=== PATIENT | male | born 1950 | race Caucasian/White ===

== ENCOUNTER → 2021-09-05 | Outpatient (CLI) | payer MEDICARE ==
--- NOTE | 2021-09-05 16:33 | XR ---
EXAMINATION TYPE: XR lumbosacral spine 5 views DATE OF EXAM: 09/05/2021 Comparison: None Clinical History: 71-year-old male Right Hip Pain M25.551 Findings: There is a eggshell calcification measuring 2.0 cm and the left subphrenic region. Slight left convex curvature centered on the upper lumbar spine. There is a grade 3 L5-S1 anterolisthesis with a promin ent degenerative hyperostosis. Trace degenerative grade 1 retrolisthesis L2-L3 and L3-L4. Mild to mod erate multilevel degenerative disc disease. Vertebral body heights are preserved. Impression: 1. A severely degenerated grade 3 anterolisthesis at L5-S1. There may be underlying L5 pars defects a t this level. 2. Hypertrophic facet arthropathy throughout. Additional degenerative trace grade 1 retrolisthesis L2 -L3 and L3-L4. 3. Mild to moderate degenerative disc disease mid to lower lumbar spine. 4. A 2.0 cm eggshell calcification left subphrenic region. This could represent a calcified pseudocys t or splenic artery aneurysm. Consider initial left upper quadrant ultrasound to attempt clarifying t he etiology.
--- NOTE | 2021-09-05 16:35 | XR ---
EXAMINATION TYPE: AP view pelvis and 2 views right hip DATE OF EXAM: 09/05/2021 COMPARISON: NONE HISTORY: 71-year-old male M25.551, right hip pain. FINDINGS: Lumbar spine reported separately. There is end-stage degenerative change of the right hip w ith complete loss of superolateral weightbearing cartilage and joint space and [id number] abutment. Mild bony remodeling of the weightbearing aspect of the femoral head. Subchondral sclerosis and cyst ic change. Marginal spurring is present. Pelvis limits. No acute fracture, subluxation, dislocation s een. Mild degenerative change left hip. IMPRESSION: Endstage [id number] right hip OA. Mild OA on the left. Lumbar spine reported separately.
== END | disposition home or self-care (01) ==
LOC: RADXRMAIN 14:01
PROVIDERS: ATTEND Family Medicine
DX: M51.36 Other intervertebral disc degeneration, lumbar region (principal); M47.896 Other spondylosis, lumbar region; M25.551 Pain in right hip
CPT/HCPCS: 72110; 73502

== ENCOUNTER → 2021-09-18 | Outpatient (CLI) | payer MEDICARE ==
[2021-09-18 12:47] LABS: Appearance,Urine Clear (Clear); Bilirubin,Urine Negative (Negative); Blood,Urine Negative (Negative); Color,Urine Yellow; Glucose,Urine (UA) Negative (Negative); Ketones,Urine Negative (Negative); Leukocyte Esterase,Urine Negative (Negative); Nitrite,Urine Negative (Negative); Protein,Urine Trace (Negative); Specific Gravity,Urine 1.029 (1.001-1.035); Urobilinogen,Urine <2.0 mg/dL (<2.0)
--- NOTE | 2021-09-18 12:56 | US ---
EXAMINATION TYPE: US groin RT DATE OF EXAM: 09/18/2021 COMPARISON: NONE CLINICAL HISTORY: R10.2 Pelvic and perineal pain,R80.89 Diminished pulses. Right groin pain Right groin at patient's area of concern: appears wnl IMPRESSION: 1. No discrete abnormality right groin. CT could be performed if additional evaluation would be of be nefit
[2021-09-18 17:46] LABS: Basophils # (A) 0.05 X 10*3/uL (0.00-0.10); Basophils % (A) 0.7 %; Eosinophils # (A) 0.12 X 10*3/uL (0.04-0.35); Eosinophils % (A) 1.7 %; HCT 43.3 % (39.6-50.0); Immature Grans, Automated 0.4 %; Lymphocytes # (A) 1.54 X 10*3/uL (0.90-5.00); Lymphocytes % (A) 21.3 %; MCH 30.6 pg (27.0-32.0); MCHC 32.3 g/dL (32.0-37.0); MCV 94.7 fL (80.0-97.0); Mean Platelet Volume 9.6 fL (9.5-12.2); Monocytes % (A) 9.7 %; NRBC Per 100 WBC 0 /100 WBCS (0.0-0.0); Neutrophils # (A) 4.79 X 10*3/uL (1.80-7.70); Neutrophils % (A) 66.2 %; Platelet Count 309 X 10*3/uL (140-440); RBC 4.57 X 10*6/uL (4.40-5.60); RDW 13.3 % (11.5-14.5); WBC 7.23 X 10*3/uL (4.50-10.00)
[2021-09-18 18:06] LABS: % Iron Saturation 29.33 (15.00-50.00); ALT 19 U/L (10-49); AST 24 U/L (14-35); African American GFR (CKD) 77.3 (60.0-200.0); Albumin 4.2 g/dL (3.8-4.9); Alkaline Phosphatase 96 U/L (41-126); BUN/Creat Ratio 20.27 Ratio (12.00-20.00); Blood Urea Nitrogen 22.3 mg/dL (9.0-27.0); Calcium 9.3 mg/dL (8.7-10.3); Carbon Dioxide 24.6 mmol/L (20.0-27.5); Chloride 102 mmol/L (96-109); Chol/HDL Ratio 2.72 Ratio; Glucose 102 mg/dL (70-110); Iron 85 ug/dL (65-175); LDL Cholesterol,Calculated 113.9 mg/dL (0.0-131.0); Non-African American GFR(CKD) 66.7 (60.0-200.0); Potassium 4.3 mmol/L (3.5-5.5); Sodium 139 mmol/L (135-145); Total Iron Binding Capacity 290 ug/dL (228-460); Total Protein 7.2 g/dL (6.2-8.2)
== END | disposition home or self-care (01) ==
LOC: RADUSWWP 11:40
PROVIDERS: ATTEND Family Medicine
DX: Z12.5 Encounter for screening for malignant neoplasm of prostate (principal); R10.2 Pelvic and perineal pain; D50.9 Iron deficiency anemia, unspecified; E87.8 Other disorders of electrolyte and fluid balance, not elsewhere classified; R94.5 Abnormal results of liver function studies; E03.9 Hypothyroidism, unspecified; R73.01 Impaired fasting glucose; E78.5 Hyperlipidemia, unspecified; N39.0 Urinary tract infection, site not specified; E55.9 Vitamin D deficiency, unspecified
CPT/HCPCS: 80053; 80061; 81003; 82728; 83036; 83540; 83550; 84153; 84439; 84443; 85025; 93922

== ENCOUNTER → 2022-08-19 | Outpatient (CLI) | payer MEDICARE ==
--- NOTE | 2022-08-19 10:08 | XR ---
EXAMINATION TYPE: XR lumbar spine 2 or 3V DATE OF EXAM: 08/19/2022 9:26 AM INDICATION: Patient age:Male; 72 years old; Reason for study: M54.9 BACK PAIN; PHH. COMPARISON: 09/05/2021 TECHNIQUE: Frontal, lateral and coned in L5-S1 lateral views of the spine. FINDINGS: No evidence of any acute osseous pathology. No evidence of loss of vertebral body height i s seen. There is grade 2-3 anterolisthesis of L5 on S1 alignment of the lumbar vertebral bodies. Ther e is bilateral spondylolysis at L5. Additional grade 1 anterolisthesis of L4 and L5. Mild scattered d isc space narrowing worse at L5-S1. Multilevel marginal osteophyte formation throughout the visualize d spine. There is facet joint arthropathy throughout the spine in the lower spine. Scattered at least mild neural foraminal stenosis worse at L5-S1. Peripherally calcified lesion in left upper quadrant. Atherosclerosis of the arterial vasculature. IMPRESSION: 1. No acute fracture. 2. Grade 2-3 anterolisthesis of L5 on S1 with spondylolysis. 3. Grade 1 anterolisthesis of L4 on L5.
[2022-08-19 16:37] LABS: Basophils # (A) 0.05 X 10*3/uL (0.00-0.10); Basophils % (A) 0.9 %; Eosinophils # (A) 0.11 X 10*3/uL (0.04-0.35); Eosinophils % (A) 1.9 %; HCT 44.6 % (39.6-50.0); HGB 14.8 d/dL (12.0-15.0); Lymphocytes # (A) 1.25 X 10*3/uL (0.90-5.00); Lymphocytes % (A) 21.5 %; MCH 31.3 pg (27.0-32.0); MCHC 33.2 d/dL (32.0-37.0); MCV 94.3 FL (80.0-97.0); Mean Platelet Volume 9.5 FL (9.5-12.2); Monocytes # (A) 0.44 X 10*3/uL (0.20-1.00); Monocytes % (A) 7.6 %; NRBC Per 100 WBC 0 X 10*3/uL (0.00-0.01); Neutrophils # (A) 3.95 X 10*3/uL (1.80-7.70); Neutrophils % (A) 67.8 %; Platelet Count 350 X 10*3/uL (140-440); RBC 4.73 X 10*6/uL (4.40-5.60); RDW 13.4 % (11.5-14.5); WBC 5.82 X 10*3/uL (4.50-10.00)
[2022-08-19 17:15] LABS: ALT 14 U/L (10-49); AST 18 U/L (14-35); Albumin 4.3 d/dL (3.8-4.9); Albumin/Globulin Ratio 1.59 Ratio (1.60-3.17); Alkaline Phosphatase 96 U/L (41-126); BUN/Creat Ratio 18.91 Ratio (12.00-20.00); Blood Urea Nitrogen 20.8 mg/dL (9.0-27.0); Calcium 9.5 mg/dL (8.7-10.3); Carbon Dioxide 27.1 mmol/L (21.6-31.8); Chloride 104 mmol/L (96-109); Chol/HDL Ratio 2.81 Ratio; Globulin 2.7 d/dL (1.6-3.3); Glucose 95 mg/dL (70-110); LDL Cholesterol,Calculated 127.4 mg/dL (0.0-131.0); Potassium 4.9 mmol/L (3.5-5.5); Sodium 142 mmol/L (135-145); T4, Free (Free Thyroxine) 1.33 ng/dL (0.80-1.80); Total Bilirubin 0.4 mg/dL (0.3-1.2)
== END | disposition home or self-care (01) ==
LOC: LABWHC1 08:02
PROVIDERS: ATTEND Nurse Practitioner
DX: Z13.220 Encounter for screening for lipoid disorders (principal); Z13.1 Encounter for screening for diabetes mellitus; M43.16 Spondylolisthesis, lumbar region; R53.83 Other fatigue; Z79.899 Other long term (current) drug therapy
CPT/HCPCS: 36415; 72100; 80053; 80061; 82306; 83036; 84402; 84403; 84439; 84443; 85025

== ENCOUNTER → 2023-12-02 | Outpatient (CLI) | payer MEDICARE ==
--- NOTE | 2023-12-03 01:47 | EEG ---
ELECTROENCEPHALOGRAM REPORT CLINICAL HISTORY: This is a 73-year-old gentleman with reported off balance when he closes his eyes. The video EEG is obtained to evaluate for seizure and epileptiform discharges. 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 EEG TYPE: A prolonged EEG with video using the 10/20 electrode placement system. DESCRIPTION: The start of recording is 13:25 and end of recording is 15:54 on 12/02/2023. DESCRIPTION: Wakefulness and drowsiness are obtained. During awake state, the posterior- dominant rhythm consists of [id number] voltage of 9 hertz activity that is well modulated, and well sustained. There is no physiological stage 2 sleep architecture. There is no focal slowing. Interictal and ictal is none. ACTIVATION PROCEDURE: Photic stimulation did not evoke a posterior driving response. There is no abnormality during the photic stimulation. Hyperventilation is not performed. CLINICAL INTERPRETATION: This is a normal 2.5-hour EEG with video during awake and drowsy state. There is no focal slowing, epileptiform discharge, or seizure on the EEG. A normal EEG does not rule out underlying epilepsy. Clinical correlation is recommended. MMJUNL / IJN: [id number] / MTDConnie
== END ==
LOC: NEUROMAIN 12:41
PROVIDERS: ATTEND Psychiatry & Neurology Neurology
DX: R68.89 Other general symptoms and signs (principal); Z74.09 Other reduced mobility; Z81.8 Family history of other mental and behavioral disorders
CPT/HCPCS: 95700; 95713

== ENCOUNTER → 2023-12-03 | Outpatient (CLI) | payer MEDICARE ==
--- NOTE | 2023-12-03 17:44 | MR ---
EXAMINATION TYPE: MR brain wo con DATE OF EXAM: 12/03/2023 4:52 PM CLINICAL INDICATION: Male, 73 years old with history of Z74.09 R68.89 Z81.8 IMPAIRED FUNCTION FORGET FUL BAL/GAIT; PHH, Vertigo COMPARISON: None. TECHNIQUE: Multi planar, multi sequence imaging was performed through the brain including: T1, T2, In version recovery, Diffusion weighted imaging, and gradient echo imaging. No gadolinium was given. FINDINGS: Mild cerebral atrophy with proportional dilation of ventricular system. Scattered foci of high T2 s ignal intensity are seen within the periventricular white matter. Midline structures show no abnormal ity. Diffusion-weighted imaging shows no evidence of restricted diffusion. The susceptibility weighte d images do not reveal any evidence for micro-hemorrhage. The bone marrow signal is within normal limits. Paranasal sinuses and mastoid air cells: No significant paranasal sinus disease. Visualized orbits: Orbital contents are intact. IMPRESSION: 1. No evidence of intracranial mass or acute/subacute infarct. 2. Nonspecific white matter changes, likely secondary to small vessel ischemic disease. [facility], , 12/03/2023 5:42 PM
== END | disposition home or self-care (01) ==
LOC: RADMRIMAIN 16:07
PROVIDERS: ATTEND Psychiatry & Neurology Neurology
CPT/HCPCS: 70551

== ENCOUNTER → 2023-12-23 | Outpatient (CLI) | payer MEDICARE ==
[2023-12-23 16:03] LABS: Chol/HDL Ratio 2.97 Ratio; LDL Cholesterol,Calculated 136.2 mg/dL (0.0-131.0); VLDL Calculation 9.84 mg/dL (5.00-40.00)
== END | disposition home or self-care (01) ==
LOC: LABWHC1 07:59
PROVIDERS: ATTEND Internal Medicine Endocrinology, Diabetes & Metabolism
DX: E55.9 Vitamin D deficiency, unspecified (principal); R63.4 Abnormal weight loss
CPT/HCPCS: 36415; 80061; 83036; 84146; 84305

== ENCOUNTER 2024-01-08 21:29 | Observation (INO) | payer MEDICARE ==
[2024-01-08 22:13] LABS: Glucose,Whole Blood 105 mg/dL (70-110)
--- NOTE | 2024-01-08 22:27 | ED ---
Abdominal Pain HPI - General Source: patient, family, RN notes reviewed Mode of arrival: ambulatory Limitations: no limitations - History of Present Illness MD Complaint: abdominal pain Onset/Timin -: hour(s) Location: suprapubic Radiation: none Migration to: no migration Quality: stabbing Consistency: intermittent Improves With: nothing Worsens With: nothing Context: possible food poisoning Associated Symptoms: nausea Treatments Prior to Arrival: NSAIDs <Edilson Oropeza - Last Filed: 01/09/24 00:08> <Joseph Mills - Last Filed: 01/09/24 08:07> - General Chief Complaint: Abdominal Pain Stated Complaint: syncope, vomiting Time Seen by Provider: 01/08/24 21:45 - History of Present Illness Initial Comments: This is a 73-year-old male presenting with family for intermittent, stabbing abdominal pain x 1 day. Family states patient also has associated nausea which they attributed to food poisoning from a meal eaten 2 hours prior. Patient states most pain is localized in the groin region. He states patient is not acting like himself at all, expressing concern when he wanted to the ER for further evaluation. Patient denies fever, chills, chest pain, dyspnea, vomiting, diarrhea, constipation, dizziness, hematuria, urinary symptoms. (Edilson Oropeza) - Related Data Allergies Allergy/AdvReac Type Severity Reaction Status Date / Time No Known Allergies Allergy Verified 01/08/24 21:33 Review of Systems ROS Other: All systems not noted in ROS Statement are negative. <Edilson Oropeza - Last Filed: 01/09/24 00:08> ROS Other: All systems not noted in ROS Statement are negative. <Joseph Mills - Last Filed: 01/09/24 08:07> ROS Statement: Those systems with pertinent positive or pertinent negative responses have been documented in the HPI. Past Medical History Past Medical History: No Reported History History of Any Multi-Drug Resistant Organisms: None Reported Past Surgical History: No Surgical Hx Reported Past Psychological History: No Psychological Hx Reported Smoking Status: Never smoker Past Alcohol Use History: Occasional Past Drug Use History: None Reported <Edilson Oropeza - Last Filed: 01/09/24 00:08> General Exam Limitations: no limitations General appearance: alert, in no apparent distress Head exam: Present: atraumatic, normocephalic, normal inspection Eye exam: Present: normal appearance, PERRL, EOMI. Absent: scleral icterus, conjunctival injection, periorbital swelling ENT exam: Present: normal exam, mucous membranes moist Neck exam: Present: normal inspection. Absent: tenderness, meningismus, lymphadenopathy Respiratory exam: Present: normal lung sounds bilaterally. Absent: respiratory distress, wheezes, rales, rhonchi, stridor Cardiovascular Exam: Present: regular rate, normal rhythm, normal heart sounds. Absent: systolic murmur, diastolic murmur, rubs, gallop, clicks GI/Abdominal exam: Present: soft, tenderness (Positive suprapubic tenderness without guarding), normal bowel sounds. Absent: distended, guarding, rebound, rigid Extremities exam: Present: normal inspection, full ROM, normal capillary refill. Absent: tenderness, pedal edema, joint swelling, calf tenderness Back exam: Present: normal inspection. Absent: CVA tenderness (R), CVA tenderness (L) Neurological exam: Present: alert, altered, CN II-XII intact Psychiatric exam: Present: normal affect, other (Talkative, tangential. Patient not behaving normally according to family.) Skin exam: Present: warm, dry, intact, normal color. Absent: rash <Edilson Oropeza - Last Filed: 01/09/24 00:08> Course Vital Signs 01/08/24 01/09/24 01/09/24 21:33 00:22 06:00 Temperature 97.7 F Pulse Rate 88 89 92 Respiratory 18 18 17 Rate Blood Pressure 133/80 146/81 137/94 O2 Sat by Pulse 100 96 96 Oximetry Medical Decision Making - Lab Data Result diagrams: 01/08/24 22:55 01/08/24 22:55 <Edilson Oropeza - Last Filed: 01/09/24 00:08> - Lab Data Result diagrams: 01/08/24 22:55 01/08/24 22:55 <Joseph Mills - Last Filed: 01/09/24 08:07> - Medical Decision Making Was pt. sent in by a medical professional or institution (, PA, FORENSIC INVESTIGATOR, urgent care, hospital, or intermediate...) When possible be specific @ -[No] Did you speak to anyone other than the patient for history (EMS, parent, family, police, friend...)? What history was obtained from this source @ -[No] Did you review nursing and triage notes (agree or disagree)? Why? @ -[I reviewed and agree with nursing and triage notes] Were old charts reviewed (outside hosp., previous admission, EMS record, old EKG , old radiological studies, urgent care reports/EKG's, intermediate records)? Report findings @ -[No old charts were reviewed] Differential Diagnosis (chest pain, altered mental status, abdominal pain women, abdominal pain men, vaginal bleeding, weakness, fever, dyspnea, syncope, headache, dizziness, GI bleed, back pain, seizure, CVA, palpatations, mental health, musculoskeletal)? @ -Differential Abdominal Pain Men: Appendicitis, cholecystitis, diverticulosis, ischemic bowel, pancreatitis, hep atitis, UTI, gastroenteritis, AAA, incarcerated hernia, bowel obstruction, constipation, inflammatory bowel, hepatitis, peptic ulcer disease, splenic infarction, perforated viscus, testicular torsion, this is not meant to be an all-inclusive list EKG interpreted by me (3pts min.). @ -Sinus rhythm without ST changes or T wave inversion. Ventricular rate 73 bpm, MARY 143 ms, QRS duration 101 ms, QTc 443 ms. X-rays interpreted by me (1pt min.). @ -[None done] CT interpreted by me (1pt min.). @ -[None done] U/S interpreted by me (1pt. min.). @ -[None done] What testing was considered but not performed or refused? (CT, X-rays, U/S, labs)? Why? @ -[None] What meds were considered but not given or refused? Why? @ -[None] Did you discuss the management of the patient with other professionals (pro fessionals i.e. , PA, FORENSIC INVESTIGATOR, lab, RT, psych nurse, social service technician, patient account representative, teacher, ict help desk officer, caseworker)? Give summary @ -[No] Was smoking cessation discussed for >3mins.? @ -[No] Was critical care preformed (if so, how long)? @ -[No] Were there social determinants of health that impacted care today? How? (Homelessness, low income, unemployed, alcoholism, drug addiction, transportation, low edu. Level, literacy, decrease access to med. care, long-term, rehab)? @ -[No] Was there de-escalation of care discussed even if they declined (Discuss DNR or withdrawal of care, Hospice)? DNR status @ -[No] What co-morbidities impacted this encounter? (DM, HTN, Smoking, COPD, CAD, Cancer, CVA, ARF, Chemo, Hep., AIDS, mental health diagnosis, sleep apnea, morbid obesity)? @ -[None] Was patient admitted / discharged? Hospital course, mention meds given and route, prescriptions, significant lab abnormalities, going to OR and other pertinent info. @ -[hospital course] Undiagnosed new problem with uncertain prognosis? @ -[No] Drug Therapy requiring intensive monitoring for toxicity (Heparin, Nitro, Insulin, Cardizem)? @ -[No] Were any procedures done? @ -[No] Diagnosis/symptom? @ -[default] Acute, or Chronic, or Acute on Chronic? @ -Acute Uncomplicated (without systemic symptoms) or Complicated (systemic symptoms)? @ -Complicated Side effects of treatment? @ -[No] Exacerbation, Progression, or Severe Exacerbation? @ -[No] Poses a threat to life or bodily function? How? (Chest pain, [place], [place], pneumonia, PE, COPD, DKA, ARF, appy, cholecystitis, CVA, Diverticulitis, Homicidal, Suicidal, threat to staff... and all critical care pts) @ -[No] (Edilson Oropeza) I did see the patient and added CT scan which may show possibility of septic arthritis of the hip. Case is discussed with orthopedics who will see the patient for further evaluation. I discussed case with medical service who will admit. (Joseph Mills) - Lab Data Lab Results 01/08/24 01/08/24 01/08/24 Range/Units 22:12 22:55 22:55 WBC 19.9 H (3.8-10.6) k/uL RBC 4.57 (4.30-5.90) m/uL Hgb 13.9 (13.0-17.5) gm/dL Hct 42.1 (39.0-53.0) % MCV 92.3 (80.0-100.0) fL MCH 30.5 (25.0-35.0) pg MCHC 33.0 (31.0-37.0) g/dL RDW 13.1 (11.5-15.5) % Plt Count 307 (150-450) k/uL MPV 6.9 Neutrophils % 95 % Lymphocytes % 2 % Monocytes % 3 % Eosinophils % 0 % Basophils % 0 % Neutrophils # 18.8 H (1.3-7.7) k/uL Lymphocytes # 0.4 L (1.0-4.8) k/uL Monocytes # 0.5 (0-1.0) k/uL Eosinophils # 0.0 (0-0.7) k/uL Basophils # 0.0 (0-0.2) k/uL PT 11.8 (10.0-12.5) sec INR 1.1 (<1.2) APTT 23.7 (22.0-30.0) sec Sodium (137-145) mmol/L Potassium (3.5-5.1) mmol/L Chloride (98-107) mmol/L Carbon Dioxide (22-30) mmol/L Anion Gap mmol/L BUN (9-20) mg/dL Creatinine (0.66-1.25) mg/dL Est GFR (CKD-EPI)AfAm (>60 ml/min/1.73 sqM) Est GFR (CKD-EPI)NonAf (>60 ml/min/1.73 sqM) Glucose (74-99) mg/dL POC Glucose (mg/dL) 105 (70-110) mg/dL POC Glu [employer] Manager ID Naomi Chip Lactic Ac Sepsis Rflx Plasma Lactic Acid Hernan (0.7-2.0) mmol/L Calcium (8.4-10.2) mg/dL Total Bilirubin (0.2-1.3) mg/dL AST (17-59) U/L ALT (4-49) U/L Alkaline Phosphatase (38-126) U/L Troponin I (0.000-0.034) ng/mL Total Protein (6.3-8.2) g/dL Albumin (3.5-5.0) g/dL Amylase (30-110) U/L Lipase (23-300) U/L Urine Color Urine Appearance (Clear) Urine pH (5.0-8.0) Ur Specific [place] (1.001-1.035) Urine Protein (Negative) Urine Glucose (UA) (Negative) Urine Ketones (Negative) Urine Blood (Negative) Urine Nitrite (Negative) Urine Bilirubin (Negative) Urine Urobilinogen (<2.0) mg/dL Ur Leukocyte Esterase (Negative) Urine RBC (0-5) /hpf Urine WBC (0-5) /hpf Ur Squamous Epith Cells (0-4) /hpf Hyaline Casts (0-2) /lpf Urine Mucus (None) /hpf Urine Yeast (Budding) (None) /hpf 01/08/24 01/08/24 01/08/24 Range/Units 22:55 22:55 22:55 WBC (3.8-10.6) k/uL RBC (4.30-5.90) m/uL Hgb (13.0-17.5) gm/dL Hct (39.0-53.0) % MCV (80.0-100.0) fL MCH (25.0-35.0) pg MCHC (31.0-37.0) g/dL RDW (11.5-15.5) % Plt Count (150-450) k/uL MPV Neutrophils % % Lymphocytes % % Monocytes % % Eosinophils % % Basophils % % Neutrophils # (1.3-7.7) k/uL Lymphocytes # (1.0-4.8) k/uL Monocytes # (0-1.0) k/uL Eosinophils # (0-0.7) k/uL Basophils # (0-0.2) k/uL PT (10.0-12.5) sec INR (<1.2) APTT (22.0-30.0) sec Sodium 135 L (137-145) mmol/L Potassium 4.2 (3.5-5.1) mmol/L Chloride 103 (98-107) mmol/L Carbon Dioxide 25 (22-30) mmol/L Anion Gap 7 mmol/L BUN 26 H (9-20) mg/dL Creatinine 1.17 (0.66-1.25) mg/dL Est GFR (CKD-EPI)AfAm 71 (>60 ml/min/1.73 sqM) Est GFR (CKD-EPI)NonAf 61 (>60 ml/min/1.73 sqM) Glucose 148 H (74-99) mg/dL POC Glucose (mg/dL) (70-110) mg/dL POC Glu [employer] Manager ID Lactic Ac Sepsis Rflx Plasma Lactic Acid Hernan 2.8 H* (0.7-2.0) mmol/L Calcium 9.2 (8.4-10.2) mg/dL Total Bilirubin 1.4 H (0.2-1.3) mg/dL AST 24 (17-59) U/L ALT 18 (4-49) U/L Alkaline Phosphatase 87 (38-126) U/L Troponin I <0.012 (0.000-0.034) ng/mL Total Protein 6.8 (6.3-8.2) g/dL Albumin 4.0 (3.5-5.0) g/dL Amylase 50 (30-110) U/L Lipase 29 (23-300) U/L Urine Color Urine Appearance (Clear) Urine pH (5.0-8.0) Ur Specific [place] (1.001-1.035) Urine Protein (Negative) Urine Glucose (UA) (Negative) Urine Ketones (Negative) Urine Blood (Negative) Urine Nitrite (Negative) Urine Bilirubin (Negative) Urine Urobilinogen (<2.0) mg/dL Ur Leukocyte Esterase (Negative) Urine RBC (0-5) /hpf Urine WBC (0-5) /hpf Ur Squamous Epith Cells (0-4) /hpf Hyaline Casts (0-2) /lpf Urine Mucus (None) /hpf Urine Yeast (Budding) (None) /hpf 01/08/24 01/08/24 01/09/24 Range/Units 23:10 23:30 03:02 WBC (3.8-10.6) k/uL RBC (4.30-5.90) m/uL Hgb (13.0-17.5) gm/dL Hct (39.0-53.0) % MCV (80.0-100.0) fL MCH (25.0-35.0) pg MCHC (31.0-37.0) g/dL RDW (11.5-15.5) % Plt Count (150-450) k/uL MPV Neutrophils % % Lymphocytes % % Monocytes % % Eosinophils % % Basophils % % Neutrophils # (1.3-7.7) k/uL Lymphocytes # (1.0-4.8) k/uL Monocytes # (0-1.0) k/uL Eosinophils # (0-0.7) k/uL Basophils # (0-0.2) k/uL PT (10.0-12.5) sec INR (<1.2) APTT (22.0-30.0) sec Sodium (137-145) mmol/L Potassium (3.5-5.1) mmol/L Chloride (98-107) mmol/L Carbon Dioxide (22-30) mmol/L Anion Gap mmol/L BUN (9-20) mg/dL Creatinine (0.66-1.25) mg/dL Est GFR (CKD-EPI)AfAm (>60 ml/min/1.73 sqM) Est GFR (CKD-EPI)NonAf (>60 ml/min/1.73 sqM) Glucose (74-99) mg/dL POC Glucose (mg/dL) (70-110) mg/dL POC Glu [employer] Manager ID Lactic Ac Sepsis Rflx Y Plasma Lactic Acid Hernan 1.3 (0.7-2.0) mmol/L Calcium (8.4-10.2) mg/dL Total Bilirubin (0.2-1.3) mg/dL AST (17-59) U/L ALT (4-49) U/L Alkaline Phosphatase (38-126) U/L Troponin I (0.000-0.034) ng/mL Total Protein (6.3-8.2) g/dL Albumin (3.5-5.0) g/dL Amylase (30-110) U/L Lipase (23-300) U/L Urine Color Yellow Urine Appearance Clear (Clear) Urine pH 8.0 (5.0-8.0) Ur Specific [place] 1.026 (1.001-1.035) Urine Protein 2+ H (Negative) Urine Glucose (UA) Negative (Negative) Urine Ketones 3+ H (Negative) Urine Blood Negative (Negative) Urine Nitrite Negative (Negative) Urine Bilirubin Negative (Negative) Urine Urobilinogen <2.0 (<2.0) mg/dL Ur Leukocyte Esterase Negative (Negative) Urine RBC 3 (0-5) /hpf Urine WBC 1 (0-5) /hpf Ur Squamous Epith Cells <1 (0-4) /hpf Hyaline Casts 1 (0-2) /lpf Urine Mucus Rare H (None) /hpf Urine Yeast (Budding) Rare H (None) /hpf
[2024-01-08] MEDS: ONDANSETRON 4 MG/2 ML VIAL IVP STA (22:45)
[2024-01-08] MEDS: SODIUM CHLORIDE 0.9% 1,000 ML IV STA (23:04)
[2024-01-08 23:18] LABS: Basophils % (A) 0 %; Eosinophils % (A) 0 %; HCT 42.1 % (39.0-53.0); HGB 13.9 gm/dL (13.0-17.5); Lymphocytes # (A) 0.4 k/uL (1.0-4.8); Lymphocytes % (A) 2 %; MCH 30.5 pg (25.0-35.0); MCV 92.3 fL (80.0-100.0); Mean Platelet Volume 6.9; Monocytes # (A) 0.5 k/uL (0-1.0); Monocytes % (A) 3 %; Neutrophils # (A) 18.8 k/uL (1.3-7.7); Neutrophils % (A) 95 %; Platelet Count 307 k/uL (150-450); RBC 4.57 m/uL (4.30-5.90); RDW 13.1 % (11.5-15.5); WBC 19.9 k/uL (3.8-10.6)
[2024-01-08 23:25] LABS: INR 1.1 (<1.2); Partial Thromboplastin Time 23.7 sec (22.0-30.0); Prothrombin Time 11.8 sec (10.0-12.5)
[2024-01-08 23:38] LABS: Appearance,Urine Clear (Clear); Bilirubin,Urine Negative (Negative); Blood,Urine Negative (Negative); Budding Yeast,Urine Rare /hpf; Color,Urine Yellow; Glucose,Urine (UA) Negative (Negative); Hyaline Casts,Urine 1 /lpf (0-2); Ketones,Urine 3+ (Negative); Leukocyte Esterase,Urine Negative (Negative); Mucus,Urine Rare /hpf; Nitrite,Urine Negative (Negative); Protein,Urine 2+ (Negative); RBC,Urine 3 /hpf (0-5); Specific Gravity,Urine 1.026 (1.001-1.035); Squamous Epithelial Cell,Urine <1 /hpf (0-4); Urobilinogen,Urine <2.0 mg/dL (<2.0); WBC,Urine 1 /hpf (0-5)
[2024-01-08 23:40] LABS: ALT 18 U/L (4-49); AST 24 U/L (17-59); African American GFR (CKD) 71 (>60 ml/min/1.73 sqM); Alkaline Phosphatase 87 U/L (38-126); Amylase 50 U/L (30-110); Anion Gap 7 mmol/L; Blood Urea Nitrogen 26 mg/dL (9-20); Calcium 9.2 mg/dL (8.4-10.2); Carbon Dioxide 25 mmol/L (22-30); Chloride 103 mmol/L (98-107); Glucose 148 mg/dL (74-99); Lipase 29 U/L (23-300); Non-African American GFR(CKD) 61 (>60 ml/min/1.73 sqM); Potassium 4.2 mmol/L (3.5-5.1); Sodium 135 mmol/L (137-145); Total Bilirubin 1.4 mg/dL (0.2-1.3); Total Protein 6.8 g/dL (6.3-8.2)
--- NOTE | 2024-01-09 00:45 | XR ---
EXAM: XR Abdomen, 1 View and XR Chest, 1 View CLINICAL HISTORY: ITS.REASON XR Reason: abdominal pain TECHNIQUE: Frontal view of the abdomen/pelvis. COMPARISON: No relevant prior studies available. Intraperitoneal space: No free air. Gastrointestinal tract: Unremarkable. No dilation. Bones/joints: Advanced degenerative changes of the right hip with flattening of the weightbearing articular surface of the right femur. No acute fracture. IMPRESSION: No acute findings in the abdomen and pelvis
--- NOTE | 2024-01-09 00:46 | XR ---
EXAM: XR Chest, 2 Views CLINICAL HISTORY: ITS.REASON XR Reason: abdominal pain TECHNIQUE: Frontal and lateral views of the chest. COMPARISON: No relevant prior studies available. FINDINGS: Lungs: Unremarkable. No consolidation. Pleural space: Unremarkable. No pneumothorax. Heart: Unremarkable. No cardiomegaly. Mediastinum: Unremarkable. Normal mediastinal contour. Bones/joints: Unremarkable. No acute fracture. IMPRESSION: Normal chest x-rays.
[2024-01-09] MEDS: IBUPROFEN 600 MG TAB PO STA (01:38)
--- NOTE | 2024-01-09 03:01 | CT ---
EXAM: CT Abdomen and Pelvis With Intravenous Contrast CLINICAL HISTORY: ITS.REASON CT Reason: low abdominal pain TECHNIQUE: Axial computed tomography images of the abdomen and pelvis with intravenous contrast. CTDI is 11.5 mGy and DLP is 563.8 mGy-cm. This CT exam was performed using one or more of the following dose reduction techniques: automated exposure control, adjustment of the mA and/or kV according to patient size, and/or use of iterative reconstruction technique. COMPARISON: No relevant prior studies available. FINDINGS: Lung bases: Unremarkable. No mass. No consolidation. ABDOMEN: Liver: Unremarkable. No mass. Gallbladder and bile ducts: Unremarkable. No calcified stones. No ductal dilation. Pancreas: Unremarkable. No mass. No ductal dilation. Spleen: Unremarkable. No splenomegaly. Adrenals: Unremarkable. No mass. Kidneys and ureters: Unremarkable. No solid mass. No hydronephrosis. Stomach and bowel: Diverticulosis without evidence of diverticulitis. PELVIS: Appendix: No findings to suggest acute appendicitis. Bladder: Unremarkable. No mass. Reproductive: Enlarged prostate. ABDOMEN and PELVIS: Intraperitoneal space: Unremarkable. No free air. No significant fluid collection. Bones/joints: 5.8 x 4.3 cm rim-enhancing fluid collection about the right hip. No acute fracture. No dislocation. Soft tissues: Unremarkable. 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 Diverticulosis without evidence of diverticulitis. Lymph nodes: Unremarkable. No enlarged lymph nodes. IMPRESSION: 5.8 cm rim-enhancing fluid collection about the right hip. Findings may represent septic arthritis in the appropriate clinical setting. This would be amenable to percutaneous drainage. 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
[2024-01-09] MEDS ORDERED: NALOXONE 0.4 MG/ML 1 ML VIAL IV PRN (06:45)
[2024-01-09] MEDS: FAMOTIDINE 20 MG TAB PO SCH (12:25)
[2024-01-09] MEDS: SODIUM CHLORIDE 0.9% 1,000 ML IV SCH (12:25)
--- NOTE | 2024-01-09 14:48 | P.HPIM ---
History of Present Illness Patient is a pleasant 73-year-old male came in with complaints of mid abdominal pain in the mid abdomen and in the suprapubic area which was 10 x 10 sharp in nature KUB x-ray and CT of the abdomen did not show any significant abnormality except for CT of the abdomen pelvis showed an incidental finding of fluid collection in the right hip and it was suspicious for septic arthritis. Patient does not have any fever does have leukocytosis. Patient's abdominal pain completely resolved. Patient is a thin built male. Patient has a history of severe osteoarthritis unable to undergo any surgery because of his nutritional status. Patient has some pain which is chronic in the right. Nothing new there is no limitation in active or passive movements of the right hip REVIEW OF SYSTEMS: All other systems are negative except those mentioned in the HPI PHYSICAL EXAMINATION: GENERAL: The patient is alert and oriented x3, not in any acute distress. Well developed, well nourished. HEENT: Pupils are round and equally reacting to light. EOMI. No scleral icterus. No conjunctival pallor. Normocephalic, atraumatic. No pharyngeal erythema. No thyromegaly. CARDIOVASCULAR: S1 and S2 present. No murmurs, rubs, or gallops. PULMONARY: Chest is clear to auscultation, no wheezing or crackles. ABDOMEN: Soft, nontender, nondistended, normoactive bowel sounds. No palpable organomegaly. MUSCULOSKELETAL: As mentioned in the HPI EXTREMITIES: No cyanosis, clubbing, or pedal edema. NEUROLOGICAL: Gross neurological examination did not reveal any focal deficits. SKIN: No rashes. Assessment and plan -Abdominal pain: Etiology is not clear for the history abdominal pain resolved patient may have passed a gallstone which can explain his leukocytosis as well.. 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 -Incidental finding of fluid in the right hip can be osteoarthritis but since there is a concern of septic arthritis although clinically patient does not have any symptoms of septic arthritis orthopedic surgery will evaluate the patient if cleared by orthopedic surgery patient will be discharged today -Leukocytosis etiology is not clear Reactive may be a passed kidney stone his abdominal pain resolved Mild protein-calorie malnutrition DVT prophylaxis: Early ambulation Past Medical History Past Medical History: No Reported History History of Any Multi-Drug Resistant Organisms: None Reported Past Surgical History: No Surgical Hx Reported Past Psychological History: No Psychological Hx Reported Smoking Status: Never smoker Past Alcohol Use History: Occasional Past Drug Use History: None Reported Medications and Allergies Home Medications Medication Instructions Recorded Confirmed Type No Known Home Medications 01/09/24 01/09/24 History Allergies Allergy/AdvReac Type Severity Reaction Status Date / Time No Known Allergies Allergy Verified 01/09/24 10:13 Physical Exam Vitals: Vital Signs Temp Pulse Pulse Resp BP BP Pulse Ox 01/09/24 14:29 98.2 F 88 16 127/77 95 01/09/24 14:00 97.6 F 76 18 136/79 95 01/09/24 06:00 92 17 137/94 96 01/09/24 00:22 89 18 146/81 96 01/08/24 21:33 97.7 F 88 18 133/80 100 Intake and Output 01/08/24 01/09/24 01/09/24 22:59 06:59 14:59 Other: Weight 56.245 kg Results CBC & Chem 7: 01/08/24 22:55 01/08/24 22:55 Labs: Abnormal Lab Results - Last 24 Hours (Table) 01/08/24 01/08/24 01/08/24 Range/Units 22:55 22:55 22:55 WBC 19.9 H (3.8-10.6) k/uL Neutrophils # 18.8 H (1.3-7.7) k/uL Lymphocytes # 0.4 L (1.0-4.8) k/uL Sodium 135 L (137-145) mmol/L BUN 26 H (9-20) mg/dL Glucose 148 H (74-99) mg/dL Plasma Lactic Acid Hernan 2.8 H* (0.7-2.0) mmol/L Total Bilirubin 1.4 H (0.2-1.3) mg/dL Urine Protein (Negative) Urine Ketones (Negative) Urine Mucus (None) /hpf Urine Yeast (Budding) (None) /hpf 01/08/24 Range/Units 23:10 WBC (3.8-10.6) k/uL Neutrophils # (1.3-7.7) k/uL Lymphocytes # (1.0-4.8) k/uL Sodium (137-145) mmol/L BUN (9-20) mg/dL Glucose (74-99) mg/dL Plasma Lactic Acid Hernan (0.7-2.0) mmol/L Total Bilirubin (0.2-1.3) mg/dL Urine Protein 2+ H (Negative) Urine Ketones 3+ H (Negative) Urine Mucus Rare H (None) /hpf Urine Yeast (Budding) Rare H (None) /hpf
[2024-01-09] MEDS ORDERED: HEPARIN SODIUM 1,000 UN/ML (10ML VL) IV PRN (14:49)
[2024-01-09] MEDS: HEPARIN SODIUM 1,000 UN/ML (10ML VL) IV ONE (15:37)
[2024-01-09] MEDS: HEPARIN SOD,PORK IN 0.45% NACL 25,000 UNIT in 0.45% NACL 1 250ML.BAG IV SCH (15:37)
[2024-01-09 15:50] LABS: HGB 13.1 gm/dL (13.0-17.5); MCH 30.3 pg (25.0-35.0); MCHC 32.1 g/dL (31.0-37.0); MCV 94.6 fL (80.0-100.0); Mean Platelet Volume 6.9; Platelet Count 262 k/uL (150-450); RBC 4.34 m/uL (4.30-5.90); RDW 13.4 % (11.5-15.5); WBC 23.3 k/uL (3.8-10.6)
[2024-01-09 16:03] LABS: INR 1.1 (<1.2); Partial Thromboplastin Time 25.9 sec (22.0-30.0); Prothrombin Time 11.6 sec (10.0-12.5)
--- NOTE | 2024-01-09 16:43 | P.GSCN ---
History of Present Illness Consult date: 01/09/24 Reason for Consult: Abdominal pain, splenic artery aneurysm History of present illness: 73-year-old gentleman presented to the emergency department secondary to lower abdominal and mid abdominal pain onset yesterday. He patient thought he had food poisoning from Thanksgiving dinner but the pain did not relent and worsened over the last 24 hours and therefore he presented to the emergency department. Overnight he has been feeling better and states urinating without significant discomfort. His lower abdominal pain did improve with a small bowel movement as well. 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 He has no discomfort in his left upper quadrant or back. He denies any fevers, chills, chest pain or shortness of breath. Review of Systems All systems: negative (What is mentioned in the HPI or past medical history) Past Medical History Past Medical History: No Reported History History of Any Multi-Drug Resistant Organisms: None Reported Past Surgical History: No Surgical Hx Reported Past Psychological History: No Psychological Hx Reported Smoking Status: Never smoker Past Alcohol Use History: Occasional Past Drug Use History: None Reported Medications and Allergies Home Medications Medication Instructions Recorded Confirmed Type No Known Home Medications 01/09/24 01/09/24 History Allergies Allergy/AdvReac Type Severity Reaction Status Date / Time No Known Allergies Allergy Verified 01/09/24 10:13 Surgical - Exam Vital Signs Temp Pulse Resp BP Pulse Ox 97.7 F 88 18 133/80 100 01/08/24 21:33 01/08/24 21:33 01/08/24 21:33 01/08/24 21:33 01/08/24 21:33 Patient Seen Date: 01/09/24 Patient Seen Time: 14:30 - General well developed, well nourished, no distress - Eyes PERRL, normal ocular movement - ENT normal pinna, normal nares - Neck no masses, no bruits - Respiratory normal expansion, normal respiratory effort - Cardiovascular Rhythm: regular - Abdomen Minimal tenderness to palpation in the suprapubic area Abdomen: soft - Integumentary no rash, no growths - Neurologic normal coordination, normal sensation - Psychiatric oriented to time, oriented to person, oriented to place, speech is normal Results CT abdomen pelvis demonstrates thrombosed 1.4 cm splenic artery aneurysm - Labs 01/09/24 15:17 01/08/24 22:55 Abnormal Lab Results - Last 24 Hours (Table) 01/08/24 01/08/24 01/08/24 Range/Units 22:55 22:55 22:55 WBC 19.9 H (3.8-10.6) k/uL Neutrophils # 18.8 H (1.3-7.7) k/uL Lymphocytes # 0.4 L (1.0-4.8) k/uL Sodium 135 L (137-145) mmol/L BUN 26 H (9-20) mg/dL Glucose 148 H (74-99) mg/dL Plasma Lactic Acid Hernan 2.8 H* (0.7-2.0) mmol/L Total Bilirubin 1.4 H (0.2-1.3) mg/dL Urine Protein (Negative) Urine Ketones (Negative) Urine Mucus (None) /hpf Urine Yeast (Budding) (None) /hpf 01/08/24 01/09/24 Range/Units 23:10 15:17 WBC 23.3 H (3.8-10.6) k/uL Neutrophils # (1.3-7.7) k/uL Lymphocytes # (1.0-4.8) k/uL Sodium (137-145) mmol/L BUN (9-20) mg/dL Glucose (74-99) mg/dL Plasma Lactic Acid Hernan (0.7-2.0) mmol/L Total Bilirubin (0.2-1.3) mg/dL Urine Protein 2+ H (Negative) Urine Ketones 3+ H (Negative) Urine Mucus Rare H (None) /hpf Urine Yeast (Budding) Rare H (None) /hpf Diabetes panel 01/08/24 Range/Units 22:55 Sodium 135 L (137-145) mmol/L Potassium 4.2 (3.5-5.1) mmol/L Chloride 103 (98-107) mmol/L Carbon Dioxide 25 (22-30) mmol/L BUN 26 H (9-20) mg/dL Creatinine 1.17 (0.66-1.25) mg/dL Glucose 148 H (74-99) mg/dL Calcium 9.2 (8.4-10.2) mg/dL AST 24 (17-59) U/L ALT 18 (4-49) U/L Alkaline Phosphatase 87 (38-126) U/L Total Protein 6.8 (6.3-8.2) g/dL Albumin 4.0 (3.5-5.0) g/dL Calcium panel 01/08/24 Range/Units 22:55 Calcium 9.2 (8.4-10.2) mg/dL Albumin 4.0 (3.5-5.0) g/dL Pituitary panel 01/08/24 Range/Units 22:55 Sodium 135 L (137-145) mmol/L Potassium 4.2 (3.5-5.1) mmol/L Chloride 103 (98-107) mmol/L Carbon Dioxide 25 (22-30) mmol/L BUN 26 H (9-20) mg/dL Creatinine 1.17 (0.66-1.25) mg/dL Glucose 148 H (74-99) mg/dL Calcium 9.2 (8.4-10.2) mg/dL Adrenal panel 01/08/24 Range/Units 22:55 Sodium 135 L (137-145) mmol/L Potassium 4.2 (3.5-5.1) mmol/L Chloride 103 (98-107) mmol/L Carbon Dioxide 25 (22-30) mmol/L BUN 26 H (9-20) mg/dL Creatinine 1.17 (0.66-1.25) mg/dL Glucose 148 H (74-99) mg/dL Calcium 9.2 (8.4-10.2) mg/dL Total Bilirubin 1.4 H (0.2-1.3) mg/dL AST 24 (17-59) U/L ALT 18 (4-49) U/L Alkaline Phosphatase 87 (38-126) U/L Total Protein 6.8 (6.3-8.2) g/dL Albumin 4.0 (3.5-5.0) g/dL Assessment and Plan Assessment: 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 No indication for any surgical intervention. He does not require any anticoagulation. Recommend blood pressure control. Follow-up in the office in 1 to 2 months. Thank you for the consultation.
[2024-01-09] MEDS: HYDROcodone/APAP 5-325MG 1 EACH TAB PO PRN (17:14)
--- NOTE | 2024-01-09 17:50 | P.DS ---
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 Patient does not have any fever does have leukocytosis. Patient's abdominal pain completely resolved. Patient is a thin built male. Patient has a history of severe osteoarthritis unable to undergo any surgery because of his nutritional status. Patient has some pain which is chronic in the right. Nothing new there is no limitation in active or passive movements of the right hip REVIEW OF SYSTEMS: All other systems are negative except those mentioned in the HPI PHYSICAL EXAMINATION: GENERAL: The patient is alert and oriented x3, not in any acute distress. Well developed, well nourished. HEENT: Pupils are round and equally reacting to light. EOMI. No scleral icterus. No conjunctival pallor. Normocephalic, atraumatic. No pharyngeal erythema. No thyromegaly. CARDIOVASCULAR: S1 and S2 present. No murmurs, rubs, or gallops. PULMONARY: Chest is clear to auscultation, no wheezing or crackles. ABDOMEN: Soft, nontender, nondistended, normoactive bowel sounds. No palpable organomegaly. MUSCULOSKELETAL: As mentioned in the HPI EXTREMITIES: No cyanosis, clubbing, or pedal edema. NEUROLOGICAL: Gross neurological examination did not reveal any focal deficits. SKIN: No rashes. Assessment and plan -Abdominal pain: Etiology is not clear for the history abdominal pain resolved patient may have passed a gallstone which can explain his leukocytosis as well.. 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 -Incidental finding of fluid in the right hip can be osteoarthritis but since there is a concern of septic arthritis although clinically patient does not have any symptoms of septic arthritis orthopedic surgery will evaluate the patient if cleared by orthopedic surgery patient will be discharged today -Leukocytosis etiology is not clear Reactive may be a passed kidney stone his abdominal pain resolved Mild protein-calorie malnutrition DVT prophylaxis: Early ambulation Patient was evaluated today by Dr Smalls felt no anticoagulation needed for the 1.4 cm thrombosed left splenic artery pseudoaneurysm noted on the CT scan. Additionally Dr Kaye has evaluated the patient and has cleared for discharge. Recommending to follow up with PCP Dr Ronnie Bose on discharge. The impression and plan of care has been dictated by Jenn Goss, Nurse Practitioner as directed. Dr. Corky MD I have performed a history and physical examination and medical decision making of this patient, discussed the same with the dictator, and agree with the dictators assessment and plan as written, documented as a scribe. Based on total visit time, I have performed more than 50% of this visit. Plan - Discharge Summary New Discharge Prescriptions: Continue No Known Home Medications Discharge Medication List No Known Home Medications 01/09/24 [History] Follow up Appointment(s)/Referral(s): Ronnie Bose DO [Primary Care Provider] - 3 Days Ambulatory/Diagnostic Orders: Complete Blood Count w/diff [LAB.AMB] Time Frame: 3 Days, Location: None Selected Discharge Disposition: HOME SELF-CARE
[2024-01-09 18:01] VITALS: BP 131/70; PULSE 87; RESP 17; TEMP 99.9
== END 2024-01-09 18:10 | disposition home or self-care (01) ==
LOC: EC 21:29 → 5NMEDONC 01-09 06:45
PROVIDERS: ADMIT Internal Medicine; ATTEND Internal Medicine
DX: I74.8 Embolism and thrombosis of other arteries (principal); R10.9 Unspecified abdominal pain; D72.829 Elevated white blood cell count, unspecified; E44.1 Mild protein-calorie malnutrition; Z68.1 Body mass index [BMI] 19.9 or less, adult
CPT/HCPCS: 96374; 99285; 36415 ×2; 93005; 80053; 82150; 83605 ×2; 83690; 84484; 85025; 85027; 85610 ×2; 85730 ×2; 81001; 71046; 74018; 74177; G0378; J2405; Q9967

== ENCOUNTER → 2024-01-13 | Outpatient (CLI) | payer MEDICARE ==
[2024-01-13 15:13] LABS: Basophils # (A) 0.08 X 10*3/uL (0.00-0.10); Basophils % (A) 0.9 %; Eosinophils # (A) 0.12 X 10*3/uL (0.04-0.35); Eosinophils % (A) 1.3 %; HCT 40.6 % (39.6-50.0); HGB 13.5 g/dL (13.0-17.0); Lymphocytes # (A) 1.07 X 10*3/uL (0.90-5.00); Lymphocytes % (A) 11.4 %; MCH 30.9 pg (27.0-32.0); MCHC 33.3 g/dL (32.0-37.0); MCV 92.9 FL (80.0-97.0); Mean Platelet Volume 9.6 FL (9.5-12.2); Monocytes % (A) 9.6 %; NRBC Per 100 WBC 0 X 10*3/uL (0.00-0.01); Neutrophils # (A) 7.06 X 10*3/uL (1.80-7.70); Neutrophils % (A) 75.4 %; Platelet Count 324 X 10*3/uL (140-440); RBC 4.37 X 10*6/uL (4.40-5.60); RDW 13.3 % (11.5-14.5); WBC 9.36 X 10*3/uL (4.50-10.00)
[2024-01-13 15:36] LABS: Thyroid Peroxidase Antibodies 15.2 U/mL (0.0-33.0)
[2024-01-13 15:57] LABS: ALT 14 U/L (10-49); AST 17 U/L (14-35); Albumin 3.8 g/dL (3.8-4.9); Albumin/Globulin Ratio 1.31 Ratio (1.60-3.17); Alkaline Phosphatase 88 U/L (41-126); BUN/Creat Ratio 16.85 Ratio (12.00-20.00); Blood Urea Nitrogen 21.9 mg/dL (9.0-27.0); Calcium 9.3 mg/dL (8.7-10.3); Carbon Dioxide 22.9 mmol/L (21.6-31.8); Chloride 103 mmol/L (96-109); Globulin 2.9 g/dL (1.6-3.3); Glucose 84 mg/dL (70-110); Potassium 3.9 mmol/L (3.5-5.5); Prostate Specific Antigen 2.94 ng/mL (0.000-6.500); Sodium 142 mmol/L (135-145); T4, Free (Free Thyroxine) 1.35 ng/dL (0.80-1.80); Total Bilirubin 0.5 mg/dL (0.3-1.2); Total Protein 6.7 g/dL (6.2-8.2)
[2024-01-13 16:03] LABS: Follicle Stimulating Hormone 8.3 mIU/mL; Luteinizing Hormone 5.3 mIU/mL
[2024-01-13 16:26] LABS: Vitamin B12 >3600.0 pg/mL (200.0-944.0)
[2024-01-13 18:22] LABS: ACTH 19.2 pg/mL (0.00-45.99)
[2024-01-14 09:33] LABS: Thyroid Stim Immun Quant <0.10 IU/L (<0.10)
== END | disposition home or self-care (01) ==
LOC: LABWHC1 10:56
PROVIDERS: ATTEND Internal Medicine Endocrinology, Diabetes & Metabolism
DX: E55.9 Vitamin D deficiency, unspecified (principal); M62.9 Disorder of muscle, unspecified; R63.4 Abnormal weight loss
CPT/HCPCS: 36415; 80053; 82024; 82306; 82533; 82607; 82671; 83001; 83002; 83970; 84153; 84439; 84443; 84445; 84480; 85025; 86376